=== PATIENT | female | born 1950 | race Caucasian/White ===

== ENCOUNTER 2020-03-04 08:18 | Outpatient (CLI) | payer MEDICARE, BC ==
--- NOTE | 2020-03-04 08:51 | ULT ---
US Abdominal Aorta: 03/04/2020 12:00 AM CLINICAL HISTORY: AAA screening. STUDY: Limited abdominal ultrasound of the aorta. TECHNIQUE: A limited ultrasound of the abdominal aorta was performed. Spectral analysis of the Dopple r waveform was performed. COMPARISON: None. FINDINGS: The aorta is normal in caliber without evidence of aneurysmal dilatation and measures 2.1 cm in great est dimension. The common iliac arteries are normal in caliber. IMPRESSION: No evidence of abdominal aortic aneurysm.
--- NOTE | 2020-03-04 10:22 | BD ---
BONE DENSITOMETRY USING DEXA: Date: 03/04/2020 HISTORY: Postmenopausal screening for osteoporosis. FINDINGS: Lumbar Spine: BMD (g/cm2) L1 1.045 T-Score: 0.5 Z-Score: 2.5 L2 1.115 T-Score: 0.8 Z-Score: 3.0 L3 1.067 T-Score: -0.2 Z-Score: 2.2 L4 1.436 T-Score: 3.4 Z-Score: 5.8 L1-L4 1.180 T-Score: 1.2 Z-Score: 3.4 Femoral Neck: 0.886 T-Score: 0.3 Z-Score: 2.2 Total Femur: 1.078 T-Score: 1.1 Z-Score: 2.7 IMPRESSION: Normal bone mineral density. POS: AH
== END 2020-03-04 08:19 | disposition home or self-care (01) ==
LOC: BICULT 08:18
PROVIDERS: ATTEND Internal Medicine
DX: Z13.6 Encounter for screening for cardiovascular disorders (principal); Z13.820 Encounter for screening for osteoporosis; Z78.0 Asymptomatic menopausal state
CPT/HCPCS: 76775; 77080

== ENCOUNTER 2020-12-22 13:28 | Outpatient (CLI) | payer MEDICARE, BC | END 2020-12-22 13:29 | disposition home or self-care (01) | LOC: BICMAMMO 13:28 | PROVIDERS: ATTEND Internal Medicine | DX: Z12.31 Encounter for screening mammogram for malignant neoplasm of breast (principal); N18.4 Chronic kidney disease, stage 4 (severe) | CPT/HCPCS: 76770; 77063; 77067 ==

== ENCOUNTER 2022-01-13 10:35 | Outpatient (CLI) | payer MEDICARE, BC | END 2022-01-13 10:36 | disposition home or self-care (01) | LOC: BICMAMMO 10:35 | PROVIDERS: ATTEND Internal Medicine | DX: Z12.31 Encounter for screening mammogram for malignant neoplasm of breast (principal) | CPT/HCPCS: 77063; 77067 ==

== ENCOUNTER 2023-03-03 08:02 | Outpatient (CLI) | payer MEDICARE, BC | END 2023-03-03 08:03 | disposition home or self-care (01) | LOC: BICMAMMO 08:02 | PROVIDERS: ATTEND Internal Medicine | DX: Z12.31 Encounter for screening mammogram for malignant neoplasm of breast (principal) | CPT/HCPCS: 77063; 77067 ==

== ENCOUNTER 2024-03-16 14:24 | Outpatient (CLI) | payer MEDICARE, BC | END 2024-03-16 14:25 | disposition home or self-care (01) | LOC: BICMAMMO 14:24 | PROVIDERS: ATTEND Internal Medicine | DX: Z12.31 Encounter for screening mammogram for malignant neoplasm of breast (principal) | CPT/HCPCS: 77063; 77067 ==

== ENCOUNTER 2025-04-08 09:39 | Outpatient (CLI) | payer MEDICARE, BC | END 2025-04-08 09:40 | disposition home or self-care (01) | LOC: BICMAMMO 09:39 | PROVIDERS: ATTEND Internal Medicine | DX: Z12.31 Encounter for screening mammogram for malignant neoplasm of breast (principal) | CPT/HCPCS: 77063; 77067 ==